=== PATIENT | female | born 1985 | race Caucasian/White ===

== ENCOUNTER 2024-09-03 22:11 | Observation (INO) | payer OTHER ==
[2024-09-03] MEDS ORDERED: MORPHINE SULFATE 2 MG/ML SYRINGE ONE (23:07)
[2024-09-03] MEDS ORDERED: ONDANSETRON 4 MG/2 ML VIAL ONE (23:10)
[2024-09-03] MEDS: morphine CARPU-JECT 2 MG/1 ML DISP.SYRIN IVPUSH ONE (23:16)
[2024-09-03] MEDS: LACTATED RINGERS SOLUTION 1000 ML INFUS.BAG IV ONE (23:17)
[2024-09-03] MEDS: ONDANSETRON 4 MG/2 ML VIAL IVPUSH ONE (23:17)
[2024-09-04 00:25] LABS: ABSOLUTE IMMATURE GRANULOCYTES 0.03 x10^3/uL (0.0-0.031); BASOPHILS # 0.04 x10^3/uL (0.01-0.08); EOSINOPHIL % 0.5 % (0.7-5.8); EOSINOPHILS # 0.07 x10^3/uL (0.04-0.36); HEMATOCRIT 39.4 % (34.1-44.9); HEMOGLOBIN 12.5 g/dL (11.2-15.7); MCHC 31.7 g/dl (32.2-35.5); MEAN CELL VOLUME 83.7 fl (79.4-94.8); MEAN PLT VOLUME 10.9 fl (9.4-12.3); MONOCYTE # 0.61 x10^3/uL (0.24-0.86); MONOCYTE % 4.6 % (4.7-12.5); PLATELET COUNT 354 x10^3/uL (182-369); RDW 13.9 % (12.1-16.8)
[2024-09-04 00:37] LABS: INR 1.01 (0.83-1.09)
[2024-09-04 00:40] LABS: ACTIVATED PTT 28.1 SECONDS (25.2-36.5)
[2024-09-04 00:51] LABS: POTASSIUM 3.8 mmol/L (3.5-5.1)
[2024-09-04 00:53] LABS: CALCIUM 9.9 mg/dL (8.5-10.1)
[2024-09-04 00:54] LABS: ALBUMIN 4.3 g/dl (3.4-5.0); BLOOD UREA NITROGEN 13.3 mg/dL (7-18)
[2024-09-04 00:57] LABS: CREATININE 0.9 mg/dL (0.55-1.3)
[2024-09-04 00:58] LABS: BILIRUBIN,TOTAL 0.4 mg/dL (0.2-1)
[2024-09-04] MEDS ORDERED: KETOROLAC TROMETHAMINE 15 MG/ML VIAL ONE (01:13)
[2024-09-04] MEDS: KETOROLAC TROMETHAMINE 30 MG/1 ML VIAL IVPUSH ONE (01:21)
[2024-09-04] MEDS ORDERED: TAMSULOSIN HCL 0.4 MG CAP ONE (02:19)
[2024-09-04] MEDS: TAMSULOSIN HCL 0.4 MG CAP PO ONE (02:24)
[2024-09-04 02:30] LABS: EPI CELLS 17 /uL (0-25.1); HYALINE CASTS 1 /uL (0-3.1); PH,URINE 7.5 (5.0-8.0); URINE APPEARANCE CLEAR; URINE BACTERIA 62 /uL (0-1359); URINE BILIRUBIN NEGATIVE (NEGATIVE); URINE COLOR YELLOW; URINE GLUCOSE (UA) NEGATIVE (NEGATIVE); URINE KETONE 1+ (NEGATIVE); URINE LEUK ESTERASE 2+ (NEGATIVE); URINE NITRITE NEGATIVE (NEGATIVE); URINE PROTEIN TRACE (NEGATIVE); URINE RBC 18 /uL (0-23.9); URINE UROBILINOGEN 0.2 mg/dL (0.2-1.0); URINE WBC 38 /uL (0-25.8)
[2024-09-04] MEDS ORDERED: CEFTRIAXONE 1 G/50 ML PREMIX 50 ML IVPB ONE (03:33)
[2024-09-04] MEDS ORDERED: MORPHINE SULFATE 2 MG/ML SYRINGE IVPUSH PRN (05:00)
[2024-09-04] MEDS ORDERED: DOCUSATE SODIUM 100 MG CAPSULE (FP) PO PRN ×2 (05:00→12:37)
[2024-09-04] MEDS ORDERED: ACETAMINOPHEN 1000 MG/100 ML BAG IVPB PRN ×2 (05:02→12:37)
[2024-09-04 06:06] VITALS: BMI 25.7
[2024-09-04] MEDS: D5-1/2NS+20 MEQ KCL - 20 MEQ/1,000 ML INFUS.BAG IV SCH ×2 (06:56→13:11)
[2024-09-04] MEDS ORDERED: KETOROLAC TROMETHAMINE 15 MG/ML VIAL IVPUSH PRN ×2 (07:00→12:37)
[2024-09-04 07:42] LABS: YEAST MODERATE (NEGATIVE)
[2024-09-04] MEDS: amLODIPine BESYLATE 5 MG TABLET (FP) PO SCH (09:59)
[2024-09-04] MEDS ORDERED: MIDAZOLAM HCL 2 MG/2 ML SINGLE DOSE VIAL ONE (11:05)
[2024-09-04] MEDS ORDERED: PROPOFOL 20 ML ONE ×2 (11:05→11:07)
[2024-09-04] MEDS ORDERED: SUCCINYLCHOLINE CHLORIDE 200 MG/10 ML SYRINGE ONE (11:09)
[2024-09-04] MEDS ORDERED: ePHEDrine SULFATE 50 MG/1 ML AMPULE ONE (11:24)
[2024-09-04] MEDS ORDERED: ONDANSETRON 4 MG/2 ML VIAL IVPUSH PRN ×2 (11:35→12:37)
[2024-09-04] MEDS: ATENOLOL 50 MG TABLET (FP) PO SCH (13:20)
[2024-09-04 13:39] VITALS: BP 104/62; PULSE 68; RESP 17; TEMP 97.3
[2024-09-04] MEDS ORDERED: ATENOLOL 50 MG TABLET (FP) PO SCH (22:00)
[2024-09-05] MEDS ORDERED: amLODIPine BESYLATE 5 MG TABLET (FP) PO SCH (10:00)
[2024-09-05] MEDS ORDERED: CEFTRIAXONE 1 G/50 ML PREMIX 50 ML IVPB SCH ×2 (10:00)
== END 2024-09-04 14:36 | disposition home or self-care (01) ==
LOC: JER 22:11 → JERBED 09-04 04:25 → J7W 09-04 05:24
PROVIDERS: ADMIT Internal Medicine
PROC: 3E0333Z Introduction of Anti-inflammatory into Peripheral Vein, Percutaneous Approach (ICD-10-PCS; 2024-09-04)
PROC: 3E033NZ Introduction of Analgesics, Hypnotics, Sedatives into Peripheral Vein, Percutaneous Approach (ICD-10-PCS; 2024-09-04)
PROC: 0TJB8ZZ Inspection of Bladder, Via Natural or Artificial Opening Endoscopic (ICD-10-PCS; principal; 2024-09-04 12:30)
PROC: 3E0337Z Introduction of Electrolytic and Water Balance Substance into Peripheral Vein, Percutaneous Approach (ICD-10-PCS; 2024-09-04 12:30)
DX: N13.2 Hydronephrosis with renal and ureteral calculous obstruction (principal); N39.0 Urinary tract infection, site not specified; I10 Essential (primary) hypertension; Z87.891 Personal history of nicotine dependence; Z87.442 Personal history of urinary calculi
CPT/HCPCS: 36415; 74176-TC; 76000-TC-FY; 80053; 81003; 84703; 85025; 85610; 85730; 86850; 86900; 86901; 87086; 94760; 99285-25; C1758; C2617; G0378